=== PATIENT | female | born 1965 | race Hispanic/Latino ===

== ENCOUNTER 2017-11-16 22:39 | Inpatient (IN) | payer MEDICAID ==
[2017-11-16] MEDS ORDERED: Aspirin 325 mg EC Tablets PO STA (23:17)
[2017-11-16 23:19] LABS: BASO # 0.1 K/uL (0.0-0.2); BASO % 0.9 % (0.0-2.0); EOS # 0.3 K/uL (0.0-0.7); EOS % 2.7 % (0.0-4.0); HEMOGLOBIN 13.7 g/dL (11.0-16.0); LYMPH # 4.3 K/uL (1.0-4.3); LYMPH % 37.6 % (20.0-40.0); MEAN CELL VOLUME 86.9 fL (81.0-99.0); MEAN CORPUSCULAR HEMOGLOBIN 29.7 pg (27.0-31.0); MEAN CORPUSCULAR HGB CONC 34.2 g/dL (33.0-37.0); MEAN PLATELET VOLUME 10.8 fL (7.2-11.7); MONO # 0.9 K/uL (0.0-0.8); MONO % 8.2 % (0.0-10.0); NEUT # 5.8 K/uL (1.8-7.0); NEUT % 50.6 % (50.0-75.0); NRBC % 0.1 % (0.0-2.0); RBC 4.6 Mil/uL (3.80-5.20); RED CELL DISTRIBUTION WIDTH 13.4 % (11.5-14.5); WHITE BLOOD COUNT 11.5 K/uL (4.8-10.8)
[2017-11-16] MEDS ORDERED: Aspirin 325 mg EC Tablets PO ONE (23:32)
[2017-11-16 23:33] LABS: ALB/GLOB RATIO 1.8 (1.0-2.1); ALBUMIN 4.8 g/dL (3.5-5.0); ALT/SGPT 39 U/L (9-52); AST/SGOT 29 U/L (14-36); BLOOD UREA NITROGEN 19 mg/dL (7-17); CALCIUM 9.1 mg/dl (8.6-10.4); GFR AFRICAN-AMERICAN > 60; GFR NON-AFRICAN AMERICAN > 60
--- NOTE | 2017-11-16 23:34 | C.PDOC ---
History Of Present Illness 52 year old female presents to the ER with a complaint of a constant, pinching, burning, 8/10 central chest pain that radiates to the left shoulder and down the arm that began an hour [employer] while at home. Patient notes the symptoms are associated with SOB and lightheadedness, she has had similar pain in the past but not in a long time. Patient has a Hx of low blood pressure, lupus and has had musculoskeletal pain cause of it but not like this. Denies diaphoresis, nausea, or vomiting. Time Seen by Provider: 11/16/17 23:13 Chief Complaint (Nursing): Chest Pain History Per: Patient History/Exam Limitations: no limitations Onset/Duration Of Symptoms: Hrs Current Symptoms Are (Timing): Still Present Quality: Burning, Other (Pinching) Associated Symptoms: Dyspnea, Other (Lightheaded). denies: Nausea, Diaphoresis Modifying Factors: None Exacerbating Factors: None Alleviating Factors: None Recent travel outside of the [place]: No Past Medical History Reviewed: Historical Data, Nursing Documentation, Vital Signs Vital Signs: Last Vital Signs Temp 97.7 F 11/16/17 22:52 Pulse 82 11/16/17 22:52 Resp 20 11/16/17 22:52 BP 145/93 H 11/16/17 22:52 Pulse Ox 100 11/16/17 23:38 - Medical History PMH: HTN Family History: States: Unknown Family Hx - Social History Hx Tobacco Use: No Hx Alcohol Use: No Hx Substance Use: No - Immunization History Hx Tetanus Toxoid Vaccination: No Hx Influenza Vaccination: No Hx Pneumococcal Vaccination: No Review Of Systems Constitutional: Negative for: Fever, Chills, Sweats Cardiovascular: Positive for: Chest Pain, Light Headedness Respiratory: Positive for: Shortness of Breath Gastrointestinal: Negative for: Nausea, Vomiting Musculoskeletal: Positive for: Shoulder Pain, Arm Pain Neurological: Negative for: Weakness, Numbness Physical Exam - Physical Exam Appears: Non-toxic Skin: Normal Color, Warm, Dry Head: Atraumatic, Normacephalic Eye(s): bilateral: Normal Inspection Oral Mucosa: Moist Neck: Normal, Supple Chest: Symmetrical, No Tenderness Cardiovascular: Rhythm Regular Respiratory: Normal Breath Sounds, No Rales, No Rhonchi, No Wheezing Gastrointestinal/Abdominal: Soft, No Tenderness Neurological/Psych: Oriented x3, Normal Speech ED Course And Treatment - Laboratory Results Result Diagrams: 11/16/17 23:17 11/16/17 23:17 Lab Interpretation: No Acute Changes ECG: Interpreted By Me ECG Interpretation: Normal O2 Sat by Pulse Oximetry: 100 (Room air) Pulse Ox Interpretation: Normal - Radiology CXR: Interpreted by Me CXR Interpretation: Yes: Other (vascular congestion with hilar fullness) Progress Note: EKG, blood work, and CXR ordered. Aspirin administered. Reevaluation Time: 23:51 Reassessment Condition: Improved - Physician Consult Information Time Consulting Physician Contacted: 23:51 Physician Contacted: Norma Traore Outcome Of Conversation: Patient to be admitted for cardiac observation. Disposition - Disposition Disposition: HOSPITALIZED Disposition Time: 23:51 Condition: STABLE - POA Present On Arrival: None - Clinical Impression Clinical Impression: Chest pain - Scribe Statement The provider has reviewed the documentation as recorded by the Scribe Silas Gonzales All medical record entries made by the Scribe were at my direction and personally dictated by me. I have reviewed the chart and agree that the record accurately reflects my personal performance of the history, physical exam, medical decision making, and the department course for this patient. I have also personally directed, reviewed, and agree with the discharge instructions and disposition.
[2017-11-17] MEDS ORDERED: Enoxaparin 150 mg Syringe SC SCH (10:00)
[2017-11-17] MEDS: Enoxaparin 40 mg Syringe SC SCH (10:10)
[2017-11-17] MEDS: Pantoprazole 40 mg EC Tab PO SCH (10:10)
--- NOTE | 2017-11-17 10:38 | RAD ---
PROCEDURE: CHEST RADIOGRAPH, 1 VIEW HISTORY: Chest pain COMPARISON: No prior FINDINGS: LUNGS: Poor inspiration with low lung volumes, crowded bronchovascular markings and mild bibasilar atelectasis PLEURA: No pneumothorax or pleural fluid seen. CARDIOVASCULAR: Normal. OSSEOUS STRUCTURES: No significant abnormalities. VISUALIZED UPPER ABDOMEN: Normal. OTHER FINDINGS: None. IMPRESSION: Poor inspiration with low lung volumes, crowded bronchovascular markings and mild bibasilar atelectasis
[2017-11-17 11:30] LABS: BASO % 0.5 % (0.0-2.0); EOS # 0.3 K/uL (0.0-0.7); EOS % 4.2 % (0.0-4.0); HEMOGLOBIN 13.2 g/dL (11.0-16.0); LYMPH # 3.3 K/uL (1.0-4.3); LYMPH % 40.9 % (20.0-40.0); MEAN CELL VOLUME 87.4 fL (81.0-99.0); MEAN CORPUSCULAR HEMOGLOBIN 29.3 pg (27.0-31.0); MEAN CORPUSCULAR HGB CONC 33.5 g/dL (33.0-37.0); MEAN PLATELET VOLUME 10.7 fL (7.2-11.7); MONO # 0.8 K/uL (0.0-0.8); NEUT # 3.6 K/uL (1.8-7.0); NEUT % 44.4 % (50.0-75.0); NRBC % 0.1 % (0.0-2.0); RBC 4.5 Mil/uL (3.80-5.20); RED CELL DISTRIBUTION WIDTH 13.3 % (11.5-14.5); WHITE BLOOD COUNT 8.1 K/uL (4.8-10.8)
[2017-11-17 11:39] LABS: ALB/GLOB RATIO 1.6 (1.0-2.1); ALBUMIN 4.2 g/dL (3.5-5.0); ALT/SGPT 40 U/L (9-52); AST/SGOT 31 U/L (14-36); BLOOD UREA NITROGEN 14 mg/dL (7-17); GFR AFRICAN-AMERICAN > 60; GFR NON-AFRICAN AMERICAN > 60
[2017-11-17 17:20] LABS: INR 1.1; PROTHROMBIN TIME 11.6 SECONDS (9.7-12.2)
--- NOTE | 2017-11-17 18:44 | CP.PCM.HP ---
Past Patient History - Past Medical History & Family History Past Medical History?: Yes - Past Social History Smoking Status: Never Smoked - CARDIAC Hx Cardiac Disorders: Yes Hx Hypertension: Yes - PULMONARY Hx Respiratory Disorders: No - NEUROLOGICAL Hx Neurological Disorder: No - HEENT Hx HEENT Problems: No - RENAL Hx Chronic Kidney Disease: No - ENDOCRINE/METABOLIC Hx Endocrine Disorders: Yes Hx Systemic Lupus Erythematosus: Yes - HEMATOLOGICAL/ONCOLOGICAL Hx Blood Disorders: No - INTEGUMENTARY Hx Dermatological Problems: No - MUSCULOSKELETAL/RHEUMATOLOGICAL Hx Musculoskeletal Disorders: Yes Hx Falls: Yes - GASTROINTESTINAL Hx Gastrointestinal Disorders: No - GENITOURINARY/GYNECOLOGICAL Hx Genitourinary Disorders: No - PSYCHIATRIC Hx Psychophysiologic Disorder: No Hx Substance Use: No - SURGICAL HISTORY Hx Surgeries: Yes Hx Section: Yes (X 3) Other/Comment: plastic surgery, abdomen - ANESTHESIA Hx Anesthesia: Yes Hx Anesthesia Reactions: No Hx Malignant Hyperthermia: No Has any member of the family had a problem w/ anesthesia?: No Meds Allergies/Adverse Reactions: Allergies Allergy/AdvReac Type Severity Reaction Status Date / Time No Known Allergies Allergy Verified 11/16/17 22:55 Physical Exam - Constitutional Appears: Well - Head Exam Head Exam: ATRAUMATIC, NORMAL INSPECTION, NORMOCEPHALIC - Eye Exam Eye Exam: EOMI, Normal appearance, PERRL Pupil Exam: NORMAL ACCOMODATION, PERRL - ENT Exam ENT Exam: Mucous Membranes Moist, Normal Exam - Neck Exam Neck exam: Positive for: Normal Inspection - Respiratory Exam Respiratory Exam: Decreased Breath Sounds - Cardiovascular Exam Cardiovascular Exam: REGULAR RHYTHM, +S1, +S2 - GI/Abdominal Exam GI & Abdominal Exam: Diminished Bowel Sounds, Soft - Rectal Exam Rectal Exam: Deferred Results - Vital Signs Recent Vital Signs: Last Vital Signs Temp 97.7 F 11/17/17 15:59 Pulse 85 11/17/17 15:59 Resp 17 11/17/17 15:59 BP 123/78 11/17/17 15:59 Pulse Ox 98 11/17/17 15:59 - Labs Result Diagrams: 11/17/17 11:08 11/17/17 11:08 Labs: Laboratory Results - last 24 hr 11/16/17 11/16/17 11/17/17 23:17 23:17 06:57 WBC 11.5 H RBC 4.60 Hgb 13.7 Hct 40.0 MCV 86.9 MCH 29.7 MCHC 34.2 RDW 13.4 Plt Count 203 MPV 10.8 Neut % (Auto) 50.6 Lymph % (Auto) 37.6 Briscoe % (Auto) 8.2 Eos % (Auto) 2.7 Baso % (Auto) 0.9 Neut # (Auto) 5.8 Lymph # (Auto) 4.3 Briscoe # (Auto) 0.9 H Eos # (Auto) 0.3 Baso # (Auto) 0.1 PT INR APTT D-Dimer, Quantitative Sodium 141 Potassium 3.9 Chloride 100 Carbon Dioxide 28 Anion Gap 17 BUN 19 H Creatinine 0.8 Est GFR ( Amer) > 60 Est GFR (Non-Af Amer) > 60 Random Glucose 98 Calcium 9.1 Total Bilirubin 0.4 AST 29 ALT 39 Alkaline Phosphatase 56 Troponin I < 0.0120 < 0.0120 Total Protein 7.5 Albumin 4.8 Globulin 2.7 Albumin/Globulin Ratio 1.8 Urine HCG, Qual 11/17/17 11/17/17 11/17/17 11:08 11:08 16:57 WBC 8.1 RBC 4.50 Hgb 13.2 Hct 39.3 MCV 87.4 MCH 29.3 MCHC 33.5 RDW 13.3 Plt Count 179 MPV 10.7 Neut % (Auto) 44.4 L Lymph % (Auto) 40.9 H Briscoe % (Auto) 10.0 Eos % (Auto) 4.2 H Baso % (Auto) 0.5 Neut # (Auto) 3.6 Lymph # (Auto) 3.3 Briscoe # (Auto) 0.8 Eos # (Auto) 0.3 Baso # (Auto) 0.0 PT INR APTT D-Dimer, Quantitative Sodium 140 Potassium 3.8 Chloride 103 Carbon Dioxide 27 Anion Gap 13 BUN 14 Creatinine 0.7 Est GFR ( Amer) > 60 Est GFR (Non-Af Amer) > 60 Random Glucose 100 Calcium 9.0 Total Bilirubin 0.7 AST 31 ALT 40 Alkaline Phosphatase 50 Troponin I Total Protein 6.8 Albumin 4.2 Globulin 2.6 Albumin/Globulin Ratio 1.6 Urine HCG, Qual Negative 11/17/17 11/17/17 17:03 18:23 WBC RBC Hgb Hct MCV MCH MCHC RDW Plt Count MPV Neut % (Auto) Lymph % (Auto) Briscoe % (Auto) Eos % (Auto) Baso % (Auto) Neut # (Auto) Lymph # (Auto) Briscoe # (Auto) Eos # (Auto) Baso # (Auto) PT 11.6 INR 1.1 APTT 49 H D-Dimer, Quantitative < 200 Sodium Potassium Chloride Carbon Dioxide Anion Gap BUN Creatinine Est GFR ( Amer) Est GFR (Non-Af Amer) Random Glucose Calcium Total Bilirubin AST ALT Alkaline Phosphatase Troponin I Total Protein Albumin Globulin Albumin/Globulin Ratio Urine HCG, Qual
--- NOTE | 2017-11-17 20:58 | CT ---
EXAM: CT Angiography Chest With Intravenous Contrast EXAM DATE/TIME: Exam ordered 11/17/2017 4:19 PM CLINICAL HISTORY: 52 years old, female; Pain; Chest pain; Type not specified; Patient HX: Hcg neg; Additional info: R/O pe TECHNIQUE: Axial computed tomographic angiography images of the chest with intravenous contrast using pulmonary embolism protocol. All CT scans at this facility use at least one of these dose optimization techniques: automated exposure control; mA and/or kV adjustment per patient size (includes targeted exams where dose is matched to clinical indication); or iterative reconstruction. MIP reconstructed images were created and reviewed. Coronal and sagittal reformatted images were created and reviewed. COMPARISON: No relevant prior studies available. FINDINGS: Pulmonary arteries: Unremarkable. No pulmonary embolism. Aorta: No acute findings. No thoracic aortic aneurysm. Lungs: Mosaic perfusion abnormality is noted diffusely in both lungs. No mass. Pleural space: Unremarkable. No significant effusion. No pneumothorax. Heart: Unremarkable. No cardiomegaly. No significant pericardial effusion. No evidence of RV dysfunction. Bones/joints: No acute fracture. No dislocation. Soft tissues: Unremarkable. Lymph nodes: Unremarkable. No enlarged lymph nodes. Liver: The liver is low in density. Spleen: There is an 8mm accessory splee n anterior to the spleen at the level of the splenic hilum. IMPRESSION: 1. No pulmonary embolus. 2. Mosaic perfusion abnormality noted diffusely in both lungs. Differential diagnostic considerations include air trapping and bronchiolitis. Pulmonary embolic disease is excluded as a cause based on this examination 3. Hepatic steatosis.
[2017-11-18 00:58] VITALS: RESP 20
--- NOTE | 2017-11-18 02:52 | CON ---
DATE: 11/17/2017 REASON FOR CONSULTATION: Chest pain. HISTORY OF PRESENT ILLNESS: The patient is a 52 years old female, originally from [facility], presented because of sharp chest pain that she describes as pinching, constant and radiating to the shoulder and left arm. The patient is unaware any prior cardiac history. SOCIAL HISTORY: Nonsmoker, nondrinker. REVIEW OF SYSTEMS: No fever or chills. No nausea or vomiting. MEDICATIONS: Aspirin 325 mg once a day, Lovenox 40 mg subcutaneous once a day, Plaquenil 200 mg daily, Protonix 40 mg p.o. once a day. PHYSICAL EXAMINATION: GENERAL: The patient is a middle-aged female who does not appear to be in acute distress. VITAL SIGNS: Blood pressure 123/78, heart rate 85, temperature 97.7, respirations 17. HEENT: Normocephalic. NECK: No JVD. CHEST: Clear. HEART: Heart sounds regular. ABDOMEN: Soft. EXTREMITIES: No edema. LABORATORY DATA: The SMA-7 is entirely within normal limits. Two sets of troponins are negative. Today's hemoglobin, hematocrit, white count, and platelet count are within normal limits. ASSESSMENT: 1. Atypical chest pain, myocardial infarction ruled out. 2. Rule out pulmonary infarction. 3. Questionable history of lupus. The patient was on Plaquenil therapy at home. RECOMMENDATIONS: Continue current aspirin and subcutaneous Lovenox. Obtain a chest CT angio to rule out pulmonary embolus. In the meantime, we will obtain PT/PTT and an echocardiogram. Donato Flores MD
[2017-11-18 09:10] LABS: BASO % 0.5 % (0.0-2.0); EOS # 0.3 K/uL (0.0-0.7); EOS % 4.3 % (0.0-4.0); HEMOGLOBIN 13.9 g/dL (11.0-16.0); LYMPH # 2.8 K/uL (1.0-4.3); LYMPH % 37.3 % (20.0-40.0); MEAN CELL VOLUME 87.2 fL (81.0-99.0); MEAN CORPUSCULAR HEMOGLOBIN 29.9 pg (27.0-31.0); MEAN CORPUSCULAR HGB CONC 34.3 g/dL (33.0-37.0); MEAN PLATELET VOLUME 10.8 fL (7.2-11.7); MONO # 0.6 K/uL (0.0-0.8); MONO % 8.1 % (0.0-10.0); NEUT # 3.8 K/uL (1.8-7.0); NEUT % 49.8 % (50.0-75.0); NRBC % 0.1 % (0.0-2.0); RBC 4.64 Mil/uL (3.80-5.20); RED CELL DISTRIBUTION WIDTH 13.1 % (11.5-14.5); WHITE BLOOD COUNT 7.6 K/uL (4.8-10.8)
[2017-11-18 09:21] VITALS: BP 103/66; PULSE 83; TEMP 98; O2SAT 95
[2017-11-18 09:22] LABS: ALB/GLOB RATIO 1.6 (1.0-2.1); ALBUMIN 4.4 g/dL (3.5-5.0); ALT/SGPT 39 U/L (9-52); AST/SGOT 27 U/L (14-36); BLOOD UREA NITROGEN 13 mg/dL (7-17); CALCIUM 9.4 mg/dl (8.6-10.4); GFR AFRICAN-AMERICAN > 60; GFR NON-AFRICAN AMERICAN > 60
[2017-11-18] MEDS: Pantoprazole 40 mg EC Tab PO SCH (11:07)
[2017-11-18] MEDS: Enoxaparin 40 mg Syringe SC SCH (11:07)
--- NOTE | 2017-11-18 11:32 | CP.PCM.PN ---
Subjective - Date & Time of Evaluation Date of Evaluation: 11/18/17 Time of Evaluation: 10:30 - Subjective Subjective: Medicine progress note for Dr. Traore's service: Patient is a 52 year old female with PMHx Lupus who presented to the ER with complaint of chest pain. She states the pain was radiating to her left arm yesterday, but currently pain is gone. Patient reports her brother had a NM and her mother had high blood pressure. She denies personal cardiac history. Patient denies reproducible chest pain as well. Objective - Vital Signs/Intake and Output Vital Signs (last 24 hours): Temp Pulse Resp BP Pulse Ox 98.0 F 83 20 103/66 95 11/18/17 08:00 11/18/17 08:00 11/18/17 08:00 11/18/17 08:00 11/18/17 08:00 Intake and Output: 11/18/17 11/18/17 06:59 18:59 Intake Total 250 Balance 250 - Medications Medications: Current Medications Aspirin (Aspirin) 325 mg PO DAILY [facility] Last Admin: 11/18/17 11:07 Dose: 325 mg Enoxaparin Sodium (Lovenox) 40 mg SC DAILY [facility] Last Admin: 11/18/17 11:07 Dose: 40 mg Hydroxychloroquine Sulfate (Plaquenil) 200 mg PO DAILY [facility] PRN Reason: Protocol Last Admin: 11/18/17 11:07 Dose: 200 mg Pantoprazole Sodium (Protonix Ec Tab) 40 mg PO DAILY [facility] Last Admin: 11/18/17 11:07 Dose: 40 mg - Labs Labs: 11/18/17 08:57 11/18/17 08:57 PT 11.6 SECONDS (9.7-12.2) 11/17/17 17:03 INR 1.1 11/17/17 17:03 APTT 49 SECONDS (21-34) H 11/17/17 17:03 - Constitutional Appears: No Acute Distress - Head Exam Head Exam: ATRAUMATIC, NORMOCEPHALIC - Eye Exam Eye Exam: EOMI - ENT Exam ENT Exam: Mucous Membranes Moist - Respiratory Exam Respiratory Exam: Clear to Ausculation Bilateral, NORMAL BREATHING PATTERN. absent: Chest Wall Tenderness - Cardiovascular Exam Cardiovascular Exam: +S1, +S2. absent: Rubs, Murmur - GI/Abdominal Exam GI & Abdominal Exam: Soft, Normal Bowel Sounds. 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 Flores consulted check echocardiogram check CTA to rule out pulmonary embolus discussed with Dr. Flores- patient may follow up with PMD as outpatient, no need to do stress test as inpatient. CTA chest: negative for pulmonary embolus (see full report) Lupus continue plaquenil 200mg PO daily Prophylaxis lovenox 40mg SC daily protonix 40mg PO daily All management as per Dr. Traore Patient is stable for discharge home per Dr. Traore. Patient is to follow up with her primary medical doctor, Dr. Srivastava, within the next week of discharge. Patient can follow up with Dr. Srivastava for results of her echocardiogram. Patient is to resume home medication hydroxychloroquine ( plaquenil) 200mg PO daily and to take daily aspirin. Patient is to return to the ER if symptoms worsen or reoccur. El paciente est estable para el trevon domiciliaria segn el Dr. Traore. El paciente debe hacer un seguimiento con cotton mdico de cabecera, el Dr. Srivastava, dentro de la prxima semana del trevon. El paciente puede seguir con el Dr. Srivastava para obtener los resultados de cotton ecocardiograma. El paciente debe reanudar la administracin domiciliaria de hidroxicloroquina (plaquenil) 200 mg por va oral diariamente y dania aspirina todos los platt. El paciente debe regresar a la teodora de emergencias si los sntomas empeoran o reaparecen.
--- NOTE | 2017-11-18 12:49 | CP.PCM.PN ---
Subjective - Date & Time of Evaluation Date of Evaluation: 11/18/17 Time of Evaluation: 08:40 - Subjective Subjective: clinically same Objective - Vital Signs/Intake and Output Vital Signs (last 24 hours): Temp Pulse Resp BP Pulse Ox 98.0 F 83 20 103/66 95 11/18/17 08:00 11/18/17 08:00 11/18/17 08:00 11/18/17 08:00 11/18/17 08:00 Intake and Output: 11/18/17 11/18/17 06:59 18:59 Intake Total 250 Balance 250 - Medications Medications: Current Medications Aspirin (Aspirin) 325 mg PO DAILY [facility] Last Admin: 11/18/17 11:07 Dose: 325 mg Enoxaparin Sodium (Lovenox) 40 mg SC DAILY [facility] Last Admin: 11/18/17 11:07 Dose: 40 mg Hydroxychloroquine Sulfate (Plaquenil) 200 mg PO DAILY [facility] PRN Reason: Protocol Last Admin: 11/18/17 11:07 Dose: 200 mg Pantoprazole Sodium (Protonix Ec Tab) 40 mg PO DAILY [facility] Last Admin: 11/18/17 11:07 Dose: 40 mg - Labs Labs: 11/18/17 08:57 11/18/17 08:57 PT 11.6 SECONDS (9.7-12.2) 11/17/17 17:03 INR 1.1 11/17/17 17:03 APTT 49 SECONDS (21-34) H 11/17/17 17:03 - Constitutional Appears: Well - Head Exam Head Exam: ATRAUMATIC, NORMAL INSPECTION, NORMOCEPHALIC - Eye Exam Eye Exam: EOMI, Normal appearance, PERRL Pupil Exam: NORMAL ACCOMODATION, PERRL - ENT Exam ENT Exam: Mucous Membranes Moist, Normal Exam - Neck Exam Neck Exam: Full ROM, Normal Inspection. absent: Lymphadenopathy - Respiratory Exam Respiratory Exam: Decreased Breath Sounds - Cardiovascular Exam Cardiovascular Exam: REGULAR RHYTHM, +S1, +S2 - GI/Abdominal Exam GI & Abdominal Exam: Soft, Diminished Bowel Sounds - Rectal Exam Rectal Exam: Deferred
--- NOTE | 2017-11-18 19:03 | PN ---
DATE: 11/19/2015 SUBJECTIVE: The patient denies any chest pain. PHYSICAL EXAMINATION: VITAL SIGNS: Blood pressure 103/66, heart rate 83, temperature 98, and respirations 20. HEENT: Normocephalic. CHEST: Clear. HEART: S1 and S2 are regular. EXTREMITIES: There is no edema. LABORATORY DATA: Today's SMA-7 is entirely within normal limit. D-dimer is less than 200. Today's hemoglobin and hematocrit, white count and platelet count are within normal limits. Chest CT angio performed yesterday revealed no pulmonary embolus. Mosaic perfusion noted diffusely in both lungs. DIFFERENTIAL DIAGNOSES: Considerations include air tapping or bronchiolitis. Pulmonary embolic disease is excluded. . ASSESSMENT: 1. Chest pain and myocardial infarction was ruled out. 2. Systemic lupus erythematosus. RECOMMENDATIONS: Continue current aspirin, Lovenox, and Plaquenil. I will review the echocardiographic study that was performed today. Donato Flores MD
--- NOTE | 2017-11-18 23:10 | CARD ---
APPROVED REPORT EKG Measurement Heart [id number] <Conclusion> Normal sinus rhythm Normal ECG
== END 2017-11-18 15:40 | disposition home or self-care (01) | DRG 143 ==
LOC: C.ER 22:39 → C.9E 23:52 → C.5S 11-17 06:42
PROVIDERS: ADMIT Internal Medicine Nephrology; ATTEND Internal Medicine Nephrology
DX: R07.89 Other chest pain (principal); M32.9 Systemic lupus erythematosus, unspecified; I10 Essential (primary) hypertension